=== PATIENT | male | born 1955 | race Caucasian/White ===

== ENCOUNTER 2016-12-21 17:43 | Inpatient (IN) | payer OTHER ==
[~2016-12-21] VITALS: Ht 185.4 cm; Wt 103.4 kg
[2016-12-21 17:56] VITALS: BP 160/112; PULSE 158; RESP 22; O2SAT 98
--- NOTE | 2016-12-21 17:57 | ED.REPORT ---
HPI-General Illness Date of Service Dec 21, 2016 ED Provider: Hieu Mathis MD 61 year old male who denies any past medical history who was referred to the ER from the cardiac clinic due to an abnormal echocardiogram. Pt was found to have an abnormal heart beat during a routine physical exam and was sent for an echocardiogram. Today he had his echo which showed EF 15-20% and was told to come immediately to the ER. Pt denies any symptoms. He denies CP, SOB, edema, weight gain, fatigue, numbness, tingling, weakness, slurred speech, palpitations , lightheadedness, dizziness and syncope. Nursing Notes Stated Complaint: HEART ISSUES Chief Complaint: Dysrhythmia/Cardiac Nursing Notes Reviewed: Yes Allergies: Coded Allergies: No Known Allergies (Unverified , 12/21/16) Scheduled Aspirin (Aspirin) 81 Mg Tablet 81 MG PO DAILY Metoprolol Tartrate (Metoprolol Tartrate) 25 Mg Tablet 25 MG PO BID General Time Seen by MD: 17:54 Chief Complaint Other (Abnormal echo) Hx Obtained From: Patient Arrived By: Walk-in Sudden in Onset?: No Severity: Current: No pain currently Pertinent Negative: Pt denies other symptoms Recent Healthcare: Recent doctor visit Past Medical History Past Medical History Pt denies any PMHx Sent to ER for Aflutter today 12/21/2016 Denies: Coronary artery disease, Diabetes mellitus, Hyperlipidemia, Hypertension , Stroke Past Surgical History None reported Smoking History Unknown if Ever Smoker Social History Alcohol Use: "Social" Drug Use: THC (occasionally) 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 Physical Exam Vital Signs Vital Signs Date Time Temp Pulse Resp B/P Pulse Ox O2 Delivery O2 Flow Rate FiO2 12/21/16 19:24 135 20 134/115 96 Room Air 12/21/16 17:56 36.9 158 22 160/112 98 Room Air Initial VS: Reviewed General/Constitutional: Well-developed, Well-nourished Head / Eyes: Atraumatic, Normocephalic, PERRL ENT: Mucous membranes moist, Conjunctiva normal, No scleral icterus Neck: Supple, Full range of motion Respiratory: Breath sounds normal, Clear to auscultation, No respiratory distress Abdomen / GI: Soft, Non-tender, No distention Extremities: Vascular intact, Neuro intact, No swelling (at calves), No tenderness (at calves) Skin: Warm, Dry, No cyanosis Neurologic: Alert, Oriented, Nonfocal Psychiatric: Mood/affect normal, Behavior normal, Normal thought content Heart Rate / Rhythm: Positive: Tachycardia (Irregular) Interpretation & Diagnostics Lab Results Interpretation Result Diagram: 12/21/16 1805 12/21/16 1805 Test 12/21/16 18:05 White Blood Count 12.0th/mm3 (3.8-10.1) Red Blood Count 6.22mil/mm3 (4.40-5.80) Hemoglobin 18.3g/dL (13.8-17.2) Hematocrit 53.6% (41.0-50.0) Mean Corpuscular Volume 86.2fL (81-100) Mean Corpuscular Hemoglobin 29.4pg (27.0-35.0) Mean Corpuscular Hemoglobin Concent 34.1% (32.0-37.0) Red Cell Distribution Width 14.2% (12.3-15.4) Platelet Count 261bil/L (150-400) Neutrophils (%) (Auto) 54.4% (40-74) Lymphocytes (%) (Auto) 32.2% (14-46) Monocytes (%) (Auto) 10.9% (4-12) Eosinophils (%) (Auto) 1.8% (0-5) Basophils (%) (Auto) 0.5% (0-3) Sodium Level 142mEq/L (134-144) Potassium Level 3.7mEq/L (3.5-5.2) Chloride Level 103mEq/L (97-108) Carbon Dioxide Level 21mmol/L (18-29) Blood Urea Nitrogen 17mg/dL (8-27) Creatinine 0.92mg/dL (0.76-1.27) Estimat Glomerular Filtration Rate 89mL/min (>59) Glucose Level 82mg/dL (60-99) Calcium Level 9.5mg/dL (8.5-10.1) Magnesium Level 1.9mg/dL (1.6-2.6) Total Bilirubin 0.9mg/dL (0.0-1.2) Aspartate Amino Transf (AST/SGOT) 45U/L (0-50) Alanine Aminotransferase (ALT/SGPT) 61U/L (0-44) Alkaline Phosphatase 83U/L (25-160) Troponin T < 0.010ug/L (0.0-0.011) Total Protein 7.6g/dL (6.4-8.4) Albumin 4.3g/dL (3.4-5.0) Hold Lim Top Tube Received (Received) General Lab Results Interp 1: Labs reviewed ECG Interpretation ECG Interpretation: Aflutter with variable conduction at a rate of [address] segment changes or T wave abnormalities. Time: 17:55 Interpreted by: ED physician X-Ray Chest Interpretation Chest Xray Interpretation: IMPRESSION: 1. Pulmonary edema and borderline cardiomegaly may reflect congestive heart failure. Dictated by: Nick Beltre M.D. on 12/21/2016 at 18:45 View: Portable, 1 view Interpretation / Wet Read by: Interpret - Radiologist Re-Eval/Medical Decision Med Decision/Clinical Course 61 year old male who denies any past medical history who was referred to the ER from the cardiac clinic due to an abnormal echocardiogram. Pt was found to have an abnormal heart beat during a routine physical exam and was sent for an echocardiogram. Today he had his echo which showed EF 15-20% and was told to come immediately to the ER. Pt denies any symptoms. He denies CP, SOB, edema, weight gain, fatigue, numbness, tingling, weakness, slurred speech, palpitations , lightheadedness, dizziness and syncope. Here the emergency department the patient is tachycardic with a heart rate in the 130s to 150s though is afebrile, he was medically stable and completely asymptomatic. He is unaware that his heart rate is rapid and irregular. ECG- Aflutter with variable conduction at a rate of [address] segment changes or T wave abnormalities. Chest x-ray 1. Pulmonary edema and borderline cardiomegaly may reflect congestive heart failure. CBC notable for hemoconcentration Hct 53 Leukocytosis 12 CMP unremarkable Troponin negative. IV access was obtained and the patient's rate was managed with multiple 5 mg aliquots of IV metoprolol. His pressure tolerated this well and his heart rate improved into the low 100s. It is surprising to me that the patient has severely reduced ejection fraction with associated pulmonary edema as he is completely asymptomatic and reports no symptoms suggestive of heart failure or pulmonary edema. I wonder if some of his reduced ejection fraction on echocardiogram today was reflective of his rapid rate. Patient was discussed with cardiology Dr. Gonzalez who requests that we start him on Eliquis, is now a patient started on Lovenox or heparin at this time. Plan for likely transesophageal echocardiogram and cardioversion if he does not have any thrombus present. At this time I see no evidence of acute coronary syndrome, pulmonary embolism or other immediately life-threatening process. Patient will require further evaluation for cause of his significantly reduced ejection fraction. Stressed with admitting hospitalist and transferred in stable condition. Time of Eval: 19:19 Re-Evaluation/Progress Note: Pt aware of plan for admission. All questions addressed. Condition unchanged, still tachycardic, BP decreased. Still asymptomatic. Consultation #1: Referral / Consult Name: Mia Gonzalez MD Consulted With: Cardiology Call Returned at: 18:24 Emergency Vehicle Operations Instructor: Will see patient Note: Discussed treatment options. Start pt on eloquis and metoprolol 25mg TID. Keep NPO. Plan for electrical cardioversion and echocardiogram. Consultation #2: Referral / Consult Name: Connor Ferreira MD Consulted With: Hospitalist Call Returned at: 19:19 Emergency Vehicle Operations Instructor: Will see patient, Agrees with eval, Agrees with plan, Accepts admit Counseled Regarding: Diagnosis, Lab results, Need for admission Discharge & Departure Primary Impression: Atrial flutter with rapid ventricular response Additional Impressions: Pulmonary edema Chronicity: acute Qualified Code: J81.0 - Acute pulmonary edema Reduced ejection fraction concurrent with and due to acute heart failure Disposition: ADMITTED TO HOSPITAL Discharge Condition All VS Reviewed: Yes Referrals: Massiel De Leon MD (PCP) Crit Care Except Billable Proc Time Spent: 105-134 minutes Services Performed: Patient management by me, Time spent at bedside, Reviewing test results, Reviewing imaging, Discussing patient care, Documentation in record, Time with fam/surrogate Scribe Attestation Portions of this note were transcribed by Marlys Luong. I, (Dr. Hieu Mathis ) personally performed the history, physical exam and medical decision-making; I reviewed and confirmed the accuracy of the information in the transcribed note. Signed by: Marlys Luong. Andrade, 12/21/2016, 1920 copies to: Massiel De Leon MD, Beck O MD Dec 21, 2016 17:57 Marlys Luong Dec 21, 2016 18:20
[2016-12-21] MEDS ORDERED: METO37.5 PO (18:04)
[2016-12-21] MEDS ORDERED: ASPI-973 PO (18:04)
[2016-12-21] MEDS ORDERED: METO25TA6 PO (18:05)
[2016-12-21 18:14] LABS: BASOPHILS % (AUTO) 0.5 % (0-3); EOSINOPHILS % (AUTO) 1.8 % (0-5); Mean Corpuscular Hemoglobin 29.4 pg (27.0-35.0)
[2016-12-21 18:22] LABS: MONOCYTES % (AUTO) 10.9 % (4-12); Mean Corpuscular Volume 86.2 fL (81-100); NEUTROPHILS % (AUTO) 54.4 % (40-74); Platelet Count 261 bil/L (150-400)
[2016-12-21] MEDS: MeTOProlol 1 mg/mL 5 mL Inj IVPUSH SCH ×3 (18:27→18:45)
[2016-12-21] MEDS ORDERED: Alum-Mag Hydrox-Simeth 30 mL Suspension PO PRN ×2 (18:30→19:25)
[2016-12-21] MEDS ORDERED: Ondansetron 2 mg/mL 2 mL Inj IVPUSH PRN ×2 (18:30→19:25)
[2016-12-21 18:39] LABS: Magnesium 1.9 mg/dL (1.6-2.6); TROPONIN T < 0.010 ug/L (0.0-0.011)
--- NOTE | 2016-12-21 18:48 | DRSVH ---
PROCEDURE: X-RAY CHEST ONE VIEW, PORTABLE ([id number]) INDICATIONS: shortness of breath TECHNIQUE: One view of the chest was acquired. COMPARISON: None. FINDINGS: Surgical changes and devices: None. Lungs and pleura: No pleural effusions or pneumothorax. The there are slightly low lung volumes. T here is prominence of the pulmonary vessels bilaterally compatible with pulmonary edema. Mediastinum: Mediastinal contours appear prominent likely due to low volumes and portable technique. Heart size is borderline enlarged. Bones and chest wall: No suspicious bony lesions. Overlying soft tissues appear unremarkable. IMPRESSION: 1. Pulmonary edema and borderline cardiomegaly may reflect congestive heart failure. Dictated by: Nick Beltre M.D. on 12/21/2016 at 18:45 Approved by: Nick Beltre M.D. on 12/21/2016 at 18:46
[2016-12-21 19:24] VITALS: BP 134/115; PULSE 135; RESP 20; O2SAT 96
[2016-12-21] MEDS ORDERED: Polyethylene Glycol (PEG) 17 Gm Powder PO PRN (19:25)
[2016-12-21] MEDS ORDERED: Lactated Ringer's 1,000 ML IV SCH (19:30)
--- NOTE | 2016-12-21 20:44 | NUR ---
Admit nurse note Admission assessment completed in the ER. Pt. denies complaints at present. STates he was dx with michael martínez in the last several weeks and after an US today "they called me at work and told me to come to the ER without even going home for a shower." Pt. has denies any previous health hx aside from childhood bone fractures. He started taking metoprolol and aspirin only several weeks ago and had to decrease his dose of metoprolol due to side effects. NKA verified. Pt. states he is "not a great reader" and would prefer his education verbally. Report given to Damon Melendez.
[2016-12-21 21:05] VITALS: BP 143/92; PULSE 126; PULSE 75; RESP 17; O2SAT 98
--- NOTE | 2016-12-21 21:23 | PCM.HPMED ---
Subjective Date of Service Dec 21, 2016 Primary Provider: Admitting Physician: Connor Ferreira MD Primary Care Physician: Massiel De Leon MD Attending Physician: Connor Ferreira MD Admit Status: From the Emergency Department Chief Complaint: HEART ISSUES History of Present Illness: 61 y/o M who denies any past medical history who was referred to the ED today after he had an abnormal Echo in the outpatient setting. 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 He reports that at his recent physical he was started on Metoprolol tartrate 25mg bid for a fast heart rate. At followup the Metoprolol was increased to 37.5mg bid and he was sent for an Echo. After the Echo showed an EF of 15-20% he was told to go to the ED. He states that he is somewhat surprised by all of this as he is without symptoms. He denies chest pain, palpitations, dyspnea, orthopnea, edema , fatigue, dizziness or headaches. He notes an active lifestyle and states that he watches what he eats, does not drink alcohol and only occasionally smokes marijuana. In the ED: Vitals temp 36.9C, BP 160/112, HR 158, RR 22, 98% on room air. Labs: wbc 12.0, H/H 18.3, 53.6, plts 261, sodium 142, potassium 3.7, chloride 103, bicarb 21, BUN 17, creatinine 0.92, serum glucose 82, calcium 9.5, magnesium 1.9 , total bili 0.9, AST 45, ALT 61, alk phos 93, troponin negative x1. ECG showing aflutter with variable conduction at rate of 128, no ST segment changes or T wave abnormalities and CXR demonstrating pulmonary edema and borderline cardiomegaly suggestive for CHF. He was started on IV metoprolol and cardiology consulted who will see tomorrow. Review of Systems: A comprehensive review of systems was conducted with the patient and found to be negative except as above in the History of Present Illness. Allergies Coded Allergies: No Known Allergies (Unverified , 12/21/16) Home Medications Aspirin 81mg PO Daily Metoprolol tartrate 25mg PO BID PMH Denies hx of CAD, DM, HTN, HLD and reports diagnosis of pre-diabetes. 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 Four adult children Exam Vital Signs Vital Sign - Last Date Time Temp Pulse Resp B/P Pulse Ox O2 Delivery O2 Flow Rate FiO2 12/21/16 19:24 135 20 134/115 96 Room Air 12/21/16 17:56 36.9 Exam Gen: Well-appearing, age-appropriate male in no acute distress, appropriately interactive HEENT: Normocephalic, atraumatic, PERRLA, no scleral icterus. Oropharynx normal , mucosa moist. Neck: Supple, non-tender. No JVD, bruits, lymphadenopathy or thyromegaly. Cardiac: Irregular rhythm, tachycardic, no murmurs, rubs or gallops appreciated. Lungs: Clear to auscultation bilaterally with no crackles, wheezes, or rhonchi. Abd: Soft, nontender, nondistended. No ogranomegaly or masses. Bowel tones normoactive. Ext: Distal pulses intact/equal bilaterally. No clubbing, cyanosis, or edema. Skin: Normal temperature, turgor, and texture; no rashes or ulcerations noted. Neuro: CN II-XII grossly intact. No focal motor/sensory deficit. Alert and oriented x3. Lab and Diagnostics Labs Laboratory Tests Test 12/21/16 18:05 White Blood Count 12.0th/mm3 (3.8-10.1) Red Blood Count 6.22mil/mm3 (4.40-5.80) Hemoglobin 18.3g/dL (13.8-17.2) Hematocrit 53.6% (41.0-50.0) Mean Corpuscular Volume 86.2fL (81-100) Mean Corpuscular Hemoglobin 29.4pg (27.0-35.0) Mean Corpuscular Hemoglobin Concent 34.1% (32.0-37.0) Red Cell Distribution Width 14.2% (12.3-15.4) Platelet Count 261bil/L (150-400) Neutrophils (%) (Auto) 54.4% (40-74) Lymphocytes (%) (Auto) 32.2% (14-46) Monocytes (%) (Auto) 10.9% (4-12) Eosinophils (%) (Auto) 1.8% (0-5) Basophils (%) (Auto) 0.5% (0-3) Sodium Level 142mEq/L (134-144) Potassium Level 3.7mEq/L (3.5-5.2) Chloride Level 103mEq/L (97-108) Carbon Dioxide Level 21mmol/L (18-29) Blood Urea Nitrogen 17mg/dL (8-27) Creatinine 0.92mg/dL (0.76-1.27) Estimat Glomerular Filtration Rate 89mL/min (>59) Glucose Level 82mg/dL (60-99) Calcium Level 9.5mg/dL (8.5-10.1) Magnesium Level 1.9mg/dL (1.6-2.6) Total Bilirubin 0.9mg/dL (0.0-1.2) Aspartate Amino Transf (AST/SGOT) 45U/L (0-50) Alanine Aminotransferase (ALT/SGPT) 61U/L (0-44) Alkaline Phosphatase 83U/L (25-160) Troponin T < 0.010ug/L (0.0-0.011) Total Protein 7.6g/dL (6.4-8.4) Albumin 4.3g/dL (3.4-5.0) Hold Lim Top Tube Received (Received) Result Diagram: 12/21/16180412/21/161804 X-Rays, CTs and MRIs X-RAY CHEST ONE VIEW, PORTABLE (Dictated by: Nick Beltre M.D. on 12/21/2016 at 18:4) FINDINGS: -Surgical changes and devices: None. -Lungs and pleura: No pleural effusions or pneumothorax. The there are slightly low lung volumes. There is prominence of the pulmonary vessels bilaterally compatible with pulmonary edema. -Mediastinum: Mediastinal contours appear prominent likely due to low volumes and portable technique. Heart size is borderline enlarged. -Bones and chest wall: No suspicious bony lesions. Overlying soft tissues appear unremarkable. IMPRESSION: Pulmonary edema and borderline cardiomegaly may reflect congestive heart failure. Approved by: Nick Beltre M.D. on 12/21/2016 at 18:46 Assessment & Plan 61 y/o M who denies any PMHx who presented to the ED after he had an abnormal Echo as an outpatient. Admitted for further evaluation and management of new onset Afib/flutter w/RVR and CHF. 1. Afib/ flutter w/RVR, new onset, present on admission. Active. -Pt asymptomatic, denies prior hx. Reportedly started on metoprolol tartrate recently for irregular heart rate. -Echo demonstrating severely dilated atria -In the ED: troponin negx1, s/p 5mg IVpush of metoprolol tartrate x3. HR 130s- 150s. -Rate control: metoprolol tartrate 50mg po bid -Will avoid diltiazem due to EF of 15-20% on echo -Start apixaban 5mg po bid, rec'd dose in the ED. -Cardiology consulted, will follow. -Placed on telemetry -Repeat CBC, CMP in morning 2. CHF, likely acute secondary to #1, present on admission. Active. -Echo (12/21/16)- severe global hypokinesis of LV w/EF 15-20% and pulmonary edema/ cardiomegaly on CXR. -Repeat echo ordered, Cardiology aware -TSH, lipid panel ordered, pending. 3. Hx of pre-diabetes, present on admission. Presumed stable. -HbA1c pending CODE STATUS: FULL CODE FEN: Heart Healthy Diet, NPO after midnight. GI Prophylaxis: not indicated DVT Prophylaxis: Sub-q lovenox, 40mg daily PRN: Acetaminophen-fever/headache/mild/moderate pain Antiemetics, as needed Bowel regimen, as needed. Disposition: Patient admitted under inpatient status with expected length of stay > 2 midnights for severity of present symptoms, complexities of treatment plan and risk for adverse event. Pain Evaluation: Adequate Pain Control VTE Prophylaxis Indicated: Meets Criteria for Anticoag Therapy VTE Prophylaxis: Other Resuscitation Status: CPR: Attempt Resuscitation Attending Statement The patient was seen and examined together with Dr. Burnett on 12/21/2016and I agree with the history, exam and plan as outlined in the note above. Katja Sierra DO Dec 21, 2016 19:44 Connor Ferreira MD Dec 22, 2016 04:19
--- NOTE | 2016-12-21 23:25 | NUR ---
Arrived [place] [facility] @ 21:00. Still asymptomatic with pain 0/10, tele afib/flutter @ 130 bpm, blood pressure 143/92 and 98% O2 sat on RA. Oriented to room and POC on whiteboard. Does not eat Lactose.
[2016-12-22] VITALS (11 sets, daily range): BP systolic 113–140; BP diastolic 84–110; PULSE 64–140; RESP 16–20; O2SAT 94–99
[2016-12-22 06:33] LABS: BASOPHILS % (AUTO) 0.4 % (0-3); EOSINOPHILS % (AUTO) 1.5 % (0-5); Mean Corpuscular Hemoglobin 29.8 pg (27.0-35.0); Mean Corpuscular Volume 87.2 fL (81-100); NEUTROPHILS % (AUTO) 64.2 % (40-74); Platelet Count 216 bil/L (150-400)
[2016-12-22 08:46] LABS: Magnesium 2.2 mg/dL (1.6-2.6)
--- NOTE | 2016-12-22 11:37 | NUR ---
Social Work: Screening Data: Pt is a 61 y/o male admitted for A flutter with RVR. Pt's PCP is Dr De Leon, pt's insurance is [employer] with [employer]. EMR reviewed, readmit score not listed. No d/c planning needs anticipated at this time. SOURCING COORDINATOR will continue to follow if needs arise. Assessment: Pt who is independent at baseline. Plan: Pt will d/c home via POV when medically stable. No d/c planning needs anticipated at this time. SOURCING COORDINATOR will continue to follow if needs arise. [place]
--- NOTE | 2016-12-22 11:47 | PCM.CHPCAR ---
Consult Subjective Date of service Dec 22, 2016 Date of admit Dec 21, 2016 at 20:03 Provider Requesting Consult Primary Care Physician Primary Care Physician: Massiel De Leon MD Chief Complaint AFib with RVR and systolic heart failure History of Present Illness 61-year-old man who has been previously healthy admitted with new onset atrial fibrillation with RVR and newly diagnosed cardiomyopathy. Patient states that he has been in good health all his life and moved from [place] about 2 years ago. 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 He established care with primary care, Dr. De Leon, who ordered echocardiogram for presumed atrial fibrillation. Echo was done yesterday that showed atrial fibrillation with RVR and severely reduced systolic function with EF 15-20%. Patient was called in to be admitted to the hospital for management of his atrial fibrillation and heart failure. Patient states that he is doing well and has no symptoms or complaints. He denies chest pain, dyspnea, palpitations, heart racing sensations, lightheadedness, syncope, nausea, or vomiting. He is able to run upstairs without any difficulty. Review of Systems Review of Systems Per history of present illness and otherwise unremarkable PMH Past Medical History NONE Scheduled Aspirin (Aspirin) 81 Mg Tablet 81 MG PO DAILY (Reported) Metoprolol Tartrate (Metoprolol Tartrate) 25 Mg Tablet 25 MG PO BID (Reported) Discontinued Medications Metoprolol Tartrate (Metoprolol Tartrate) 37.5 Mg Tablet 37.5 MG PO BID ( Reported) Current Inpatient Medications Current Medications Metoprolol Tartrate 5 mg Q5MIN IVPUSH Last administered on 12/21/16t 18:45; Admin Dose 5 MG; Start 12/21/16 at 18:20 Al Hydrox/Mg Hydrox/Simethicone 30 ml Q6 PRN PO; Start 12/21/16 at 18:30; Stop 12/21/16 at 19:32; Status DC Ondansetron HCl Dose range: 4 mg to 8 mg Q4H PRN IVPUSH; Start 12/21/16 at 18:30 ; Stop 12/21/16 at 19:32; Status DC Acetaminophen 975 mg Q6H PRN PO; Start 12/21/16 at 18:30 Metoprolol Tartrate 25 mg TID PO; Start 12/21/16 at 20:30; Stop 12/21/16 at 20:30 ; Status DC Al Hydrox/Mg Hydrox/Simethicone 30 ml Q6H PRN PO; Start 12/21/16 at 19:25 Ondansetron HCl 4 to 8 mg Q4H PRN IVPUSH; Start 12/21/16 at 19:25 Senna 17.2 mg BID PRN PO; Start 12/21/16 at 19:25 Polyethylene Glycol 17 gm DAILY PRN PO; Start 12/21/16 at 19:25 Apixaban 5 mg 5 mg BID PO Last administered on 12/22/16 08:52; Admin Dose 5 MG; Start 12/22/16 at 08:30 Lactated Ringer's 1,000 ml @ 125 mls/hr Q8H IV Last administered on 12/21/16 22 :16; Admin Dose 125 MLS/HR; Start 12/21/16 at 19:30; Stop 12/21/16 at 23:36; Status DC Metoprolol Tartrate 50 mg BID PO Last administered on 12/22/16 08:52; Admin Dose 50 MG; Start 12/21/16 at 20:30 Allergies: Coded Allergies: No Known Allergies (Unverified , 12/21/16) Family History Family History Dad received stents to his heart in his 70s Social History 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 Hx Alcohol Use: YesAlcoholic Drinks Per Day: occasional beer Hx Substance Use: Yes (THC, occasional ) Smoking Status: Former Smoker (Occasional social smoker, quit in 1999) Living Arrangement: Alone Exam Vital Signs Vital Sign - Last Date Time Temp Pulse Resp B/P Pulse Ox O2 Delivery O2 Flow Rate FiO2 12/22/16 08:57 36.7 100 20 123/93 96 Room Air Intake and Output 12/21/16 12/21/16 12/22/16 Cumulative From/Thru 15:00 23:00 07:00 12/21/16 17:56 - 12/22/16 06:29 Intake Total 1000 ml 1000 ml Balance 1000 ml 1000 ml IV Total 1000 ml 1000 ml General appearance: No apparent distress, well-nourished, pleasant, cooperative HEET: Normocephalic atraumatic, no scleral icterus, tongue midline, mucous membranes moist Neck: supple, no carotid bruits Cardiovascular: RRR, normal S1 and normal S2, no m/r/g, PMI nondisplaced, JVP 10cm H20, no peripheral edema b/l Respiratory: Good aeration, CTAB Abdomen: Soft, nontender, nondistended, + bowel sounds Neuro: Alert, no facial droop, tongue midline Psych: appropriate affect Skin: no rashes on face, neck, and lower extremities Lab and Diagnostics Result Diagram: 12/22/16 0550 12/22/16 0550 X-Rays, CTs and MRIs Echo 12/21/2016: The left ventricle is normal in size. The ejection fraction is estimated to be 15-20%. There is severe global hypokinesis of the left ventricle. The right ventricle is mildly dilated. Right ventricular systolic function is moderately reduced. Both atria are severely dilated. There is moderate mitral regurgitation. There is moderate tricuspid regurgitation. The right ventricular systolic pressure is estimated at 40 mmHg assuming a right atrial pressure of 15 mm Hg. The ascending aorta is mildly enlarged. The patient was in atrial fibrillation with heart rates between 118-157 bpm during the exam. Assessment & Plan Assessment 61-year-old man who has been previously healthy admitted with new onset atrial fibrillation with RVR and newly diagnosed cardiomyopathy: # Newly diagnosed cardiomyopathy: Suspect etiology is tachycardia mediated. His TSH is normal. No history of prior cardiac infarction based on history or on ECG. On telemetry, his ventricular rate remains in the 110s-140s range. Patient is asymptomatic from his cardiomyopathy and from his atrial fibrillation. He is NYHA class II, ACC stage B. I spent significant time educating the patient about his condition and answered his questions. I recommended rhythm control with cardioversion. After much discussion with him, patient wants to proceed with cardioversion tests are proceeded by ALBINA. Recommendations as below: - Switch from metoprolol tartrate 50mg bid to metoprolol XL 100mg bid for better rate control. - If BP > 120/80 after DCCV, he can be considered for low dose lisinopril/ losartan - ALBINA with DCCV for rhythm control of AF # AF with RVR: poor rate control. - Metoprolol as above - Continue apixaban 5mg bid - DCCV as above - Stop marijuana use # HLD: mildly elevated lipids. Will manage as outpatient # Marijuana use: Educated patient to stop marijuana use. Pain Evaluation: Adequate Pain Control VTE Prophylaxis Indicated: Meets Criteria for Anticoag Therapy VTE Prophylaxis: Other Resuscitation Status: CPR: Attempt Resuscitation Sam March MD Dec 22, 2016 11:47
[2016-12-22] MEDS ORDERED: Atropine 1 mg/10 mL (Code) Syringe ONE (11:56)
[2016-12-22] MEDS: MeTOProlol XL 50 mg ER24 Tablet PO SCH ×2 (12:13→21:19)
[2016-12-22] MEDS ORDERED: fentaNYL-PF 50 mCg/mL 2 mL Inj ONE (14:43)
[2016-12-22] MEDS ORDERED: 0.9% Sodium Chloride 250 ML ONE (14:44)
[2016-12-22] MEDS ORDERED: Methohexital 10 mg/mL 50 mL Inj ONE (14:45)
--- NOTE | 2016-12-22 14:45 | NUR ---
A-fib Per telesales agent, Patient was in A-fib in the 140's this morning. MD was notified. Patient was administered PO Metoprolol and patient continued A-fib in 120's-130's. MD was made aware. Patient has ALBINA ordered for today
--- NOTE | 2016-12-22 15:23 | NUR ---
To [facility] Patient report given to [facility] nurse Isis. Patient transferred by wheelchair to [facility] room 1 by ROTARY DUMP OPERATOR at 1515.
[2016-12-22] MEDS ORDERED: Amiodarone 150 mg/100 mL D5W Premix IV ONE (16:22)
--- NOTE | 2016-12-22 16:52 | PCM.PROC ---
Procedure Note Date of Service: Dec 22, 2016 Pre Procedure Diagnosis: Atrial fibrillation with rapid ventricular response, new cardiomyopathy Post Procedure Diagnosis: Atrial fibrillation with rapid ventricular response, new cardiomyopathy Procedure: DC Cardioversion. Indication for Procedure: Poor rate controlled atrial fibrillation, new cardiomyopathy Findings: Successful transient conversion from atrial fibrillation to sinus rhythm and spontaneous conversion back to atrial fibrillation. Procedural Analgesia: Brevital 40mg IV X1 Procedure Details: After ALBINA showed no left atrial appendage thrombus, patient received brevital 40mg IV X1. With 200J of synchronized DC CV, patient's rhythm successfully converted from atrial fibrillation to sinus rhythm briefly and then spontaneously conversion back to atrial fibrillation. Patient then received another 200J of synchronized DC CV and patient's rhythm again converted from atrial fibrillation to sinus rhythm transiently and converted then back to atrial fibrillation spontaneously. Post Procedure Plan: 1) Continue rate control 2) Start IV amiodarone for rate and rhythm control and consider repeat DC CV in future 3) Continue therapeutic anticoagulation Sam March MD Dec 22, 2016 16:52
--- NOTE | 2016-12-22 17:41 | NUR ---
[facility] ALBINA/CARDIOVERSION PT WAS BROUGHT TO [facility] AT 1515 FOR PROCEDURES. SEE PAPER FLOW SHEETS FOR DETAILS. CARDIOVERSION WAS UNSUCCESSFUL AND PT WAS GIVEN AMIODARONE 150MG IV BOLUS OVER 30MINUTES PER VERBAL ORDERS DR IRVING. POST SEDATION PT REMAINED STABLE. CURRENTLY TAKING PO FLUIDS AND ABLE TO STAND AT BEDSIDE. PT AND HIS NURSING CARE WERE TRANSFERRED BACK TO ROOM 3021 AT 1735. REPORT WAS GIVEN TO FREDRICK Leavitt RN. TELE CONFIRMED WITH TECHNOLOGY SPECIALIST.
--- NOTE | 2016-12-22 17:56 | PCM.PNMED ---
Subjective Date of Service Dec 22, 2016 Exam Vital Signs Vital Sign - Last Date Time Temp Pulse Resp B/P Pulse Ox O2 Delivery O2 Flow Rate FiO2 12/22/16 17:15 111 17 113/94 94 Room Air 12/22/16 12:57 36.4 Intake and Output 12/21/16 12/21/16 12/22/16 Cumulative From/Thru 15:00 23:00 07:00 12/21/16 17:56 - 12/22/16 06:29 Intake Total 1000 ml 1000 ml Balance 1000 ml 1000 ml IV Total 1000 ml 1000 ml Exam Eyes; juhi eom intact, ENTM; well hydrated, no lesions CV; S1S2 present, no murmur or gallop, irregular at 100/min Resp; clear Abdo soft and benign Skin; no rash or lesion noted Neuro; 2-12 intact no motor or sensory defects Lab and Diagnostics Result Diagram: 12/22/16 0550 12/22/16 0550 X-Rays, CTs and MRIs X-RAY CHEST ONE VIEW, PORTABLE (Dictated by: Nick Beltre M.D. on 12/21/2016 at 18:4) FINDINGS: -Surgical changes and devices: None. -Lungs and pleura: No pleural effusions or pneumothorax. The there are slightly low lung volumes. There is prominence of the pulmonary vessels bilaterally compatible with pulmonary edema. -Mediastinum: Mediastinal contours appear prominent likely due to low volumes and portable technique. Heart size is borderline enlarged. -Bones and chest wall: No suspicious bony lesions. Overlying soft tissues appear unremarkable. IMPRESSION: Pulmonary edema and borderline cardiomegaly may reflect congestive heart failure. Approved by: Nick Beltre M.D. on 12/21/2016 at 18:46 Assessment & Plan 61 y/o M who denies any PMHx who presented to the ED after he had an abnormal Echo as an outpatient. Admitted for further evaluation and management of new onset Afib/flutter w/RVR and CHF. 1. Afib/ flutter w/RVR, new onset, present on admission. Active. -Pt asymptomatic, denies prior hx. Reportedly started on metoprolol tartrate recently for irregular heart rate. -Echo demonstrating severely dilated atria -tsh normal -2 attempted cardioversion following ALBINA, did not stay in sinus -oral amio started, reevaluate in AM 2. CHF, likely acute secondary to #1, present on admission. Active. -Echo (12/21/16)- severe global hypokinesis of LV w/EF 15-20% and pulmonary edema/ cardiomegaly on CXR. -Repeat echo ordered, Cardiology aware -TSH, lipid panel ordered, pending. 3. Hx of pre-diabetes, present on admission. Presumed stable. -HbA1c pending CODE STATUS: FULL CODE FEN: Heart Healthy Diet, NPO after midnight. GI Prophylaxis: not indicated DVT Prophylaxis: Sub-q lovenox, 40mg daily PRN: Acetaminophen-fever/headache/mild/moderate pain Antiemetics, as needed Bowel regimen, as needed. Disposition: Patient admitted under inpatient status with expected length of stay > 2 midnights for severity of present symptoms, complexities of treatment plan and risk for adverse event. VTE Prophylaxis: Other Resuscitation Status: CPR: Attempt Resuscitation Jesus Schulz MD Dec 22, 2016 17:56 VTE Prophylaxis: Other Resuscitation Status: CPR: Attempt Resuscitation Jesus Schulz MD Dec 22, 2016 17:56
[2016-12-23 00:37] VITALS: BP 112/80; PULSE 83; RESP 18; O2SAT 98
[2016-12-23] MEDS ORDERED: MeTOProlol 1 mg/mL 5 mL Inj IVPUSH ONE (01:50)
[2016-12-23 04:39] VITALS: BP 121/92; PULSE 64; RESP 18; O2SAT 97
[2016-12-23 05:52] VITALS: PULSE 123
--- NOTE | 2016-12-23 06:23 | NUR ---
IV metoprolol Pts HR began slowly increasing after midnight. Pts HR between 120 and 140. Pt is asymptomatic. Md notified and ordered one time dose of IV metoprolol. Medication given with good relief of tachycardia.
[2016-12-23] MEDS: MeTOProlol XL 50 mg ER24 Tablet PO SCH (08:30)
[2016-12-23 10:08] VITALS: PULSE 126
[2016-12-23 10:38] VITALS: BP 127/96; PULSE 108; RESP 18; O2SAT 98
--- NOTE | 2016-12-23 11:00 | DRSVH ---
[facility] [address] [place] [address] Echocardiogram Report Name: CORNELL PRUETT LStudy Date : 12/22/2016 Height: 73 in Hospital Exam Location: [facility] Weight: 228 lb Gender: Male BSA: 2.3 m2 : 1955 Age: 61 yrs BP: 134/110 mmHg Reason For Study: PRE-CARDIOVERSION Ordering Physician: Performed By: Armand Dominguez Interpretation Summary No thrombus is detected in the left atrial appendage. Procedure: A 2D transesophageal echocardiogram with spectral and color flow Doppler was performed. Informed consent for Transesophageal Echocardiogram, and use of a contrast agent as needed, was obtained prior to the procedure. The patient was brought to the [facility] in a fasting state. An intravenous line was placed. A topical anesthetic agent was used for oropharangeal anesthesia. A bite block was inserted. IV concious sedation was administered using versed and fentanyl. Comparison is made with the echocardiogram of 12/21/16. The patient was in atrial fibrillation with rapid ventricular response during the exam with a heart rate exceeding 100 bpm. There were no complications. Left Ventricle: Left ventricular systolic function is severely reduced. Atria: No thrombus is detected in the left atrial appendage. There is no Doppler evidence for an atrial septal defect. Aortic Valve: The aortic valve is normal in structure and function. There is mild aortic regurgitation. Pulmonic Valve: The pulmonic valve is not well seen, but is grossly normal. Reading Physician:10:59 AM
--- NOTE | 2016-12-23 12:18 | PCM.PNCARD ---
Subjective Date of service Dec 23, 2016 Chief Complaint AFib with RVR and systolic heart failure History of Present Illness 61-year-old man who has been previously healthy admitted with new onset atrial fibrillation with RVR and newly diagnosed cardiomyopathy. Patient states that he has been in good health all his life and moved from [place] about 2 years ago. 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 He established care with primary care, Dr. De Leon, who ordered echocardiogram for presumed atrial fibrillation. Echo was done yesterday that showed atrial fibrillation with RVR and severely reduced systolic function with EF 15-20%. Patient was called in to be admitted to the hospital for management of his atrial fibrillation and heart failure. Patient states that he is doing well and has no symptoms or complaints. He denies chest pain, dyspnea, palpitations, heart racing sensations, lightheadedness, syncope, nausea, or vomiting. He is able to run upstairs without any difficulty. Subjective: No events overnight. Patient continues to feel good. He underwent ALBINA yesterday that showed no LA thrombus. Subsequent DC CV X2 yielded successful conversion of AF to sinus very briefly (for about 5 seconds). Due to limited success, he was started on IV amiodarone bolus and then transitioned to PO amiodarone. PROBLEM LIST: # HFrEF: probably from tachycardia mediated cardiomyopathy # Persistent atrial fibrillation: DC CV X2 on 12/22/2016 resulted on transient ( about 5seconds) success Exam Vital Signs Vital Sign - Last Date Time Temp Pulse Resp B/P Pulse Ox O2 Delivery O2 Flow Rate FiO2 12/23/16 10:38 36.7 108 18 127/96 98 Room Air Intake and Output 12/22/16 12/22/16 12/23/16 Cumulative From/Thru 15:00 23:00 07:00 12/21/16 17:56 - 12/23/16 05:34 Intake Total 200 ml 800 ml 250 ml 2250 ml Output Total 550 ml 550 ml Balance -350 ml 800 ml 250 ml 1700 ml Intake Oral 200 ml 600 ml 250 ml 1050 ml IV Total 200 ml 1200 ml Output Urine Total 550 ml 550 ml # Voids 1 3 2 6 # Bowel Movements 2 2 General appearance: No apparent distress, well-nourished, pleasant, cooperative HEET: Normocephalic atraumatic, no scleral icterus, tongue midline, mucous membranes moist Neck: supple, no carotid bruits Cardiovascular: irregularly irregular, tachy, normal S1 and normal S2, no m/r/g , PMI nondisplaced, JVP 8cm H20, no peripheral edema b/l Respiratory: Good aeration, CTAB Abdomen: Soft, nontender, nondistended, + bowel sounds Neuro: Alert, no facial droop, tongue midline Psych: appropriate affect Skin: no rashes on face, neck, and lower extremities Lab and Diagnostics Result Diagram: 12/22/16 0550 12/22/16 0550 X-Rays, CTs and MRIs Echo 12/21/2016: The left ventricle is normal in size. The ejection fraction is estimated to be 15-20%. There is severe global hypokinesis of the left ventricle. The right ventricle is mildly dilated. Right ventricular systolic function is moderately reduced. Both atria are severely dilated. There is moderate mitral regurgitation. There is moderate tricuspid regurgitation. The right ventricular systolic pressure is estimated at 40 mmHg assuming a right atrial pressure of 15 mm Hg. The ascending aorta is mildly enlarged. 12-lead ECG Telemetry in the past 24 hours shows atrial fibrillation with ventricular rates in the 110s-120s Assessment & Plan Assessment 61-year-old man who has been previously healthy admitted with new onset atrial fibrillation with RVR and newly diagnosed cardiomyopathy: # Newly diagnosed cardiomyopathy: Suspect etiology is tachycardia mediated. His TSH is normal. No history of prior cardiac infarction based on history or on ECG. Patient is asymptomatic and is NYHA class II, ACC stage B. Attempt at DC CV on 12/22/2016 was successful very transiently. I spent significant time educating the patient about his condition and answered his questions. Recommendations as below: - Increase metoprolol XL from 100mg bid to 150mg bid for better rate control. - Start lisinopril 5mg qhs # AF with RVR: poor rate control that has improved slightly with amiodarone that was started 12/22/2016. Very transient conversion to sinus rhythm with DC CV X2 on 12/22/2016. Plan - Metoprolol as above - Continue apixaban 5mg bid - Continue amiodarone 400mg bid - Stop marijuana use # HLD: mildly elevated lipids. Will manage as outpatient # Marijuana use: Educated patient to stop marijuana use. Patient is okay to be discharged from cardiology standpoint. Will see him as outpatient in 2 weeks. Problems: Pain Evaluation: Adequate Pain Control VTE Prophylaxis: Other Resuscitation Status: CPR: Attempt Resuscitation Sam March MD Dec 23, 2016 12:18
[2016-12-23 14:15] VITALS: BP 127/95; PULSE 104; RESP 16; O2SAT 100
--- NOTE | 2016-12-23 14:46 | PCM.DIMED ---
Discharge Instructions Date of Service Dec 23, 2016 Dates of Hospitalization Dec 21, 2016 at 20:03 Discharge Diagnosis Discharge Diagnosis 1. Afib/ flutter w/RVR, new onset, present on admission. stable. 2. CHF, likely acute secondary to #1, present on admission. stable. 3. Hx of pre-diabetes, present on admission. stable. -HbA1c 5.9 Diet Low fat, Low Sodium Activity Limited until seen by PCP, Other (nothing to strenuous) Patient Instructions Follow-up plan Dr Perdomo's office is to call you in the next few day to set up your cardiology appointment, if you do not hear from them By Sunday please call for appointment Jesus Schulz MD Dec 23, 2016 14:46
[2016-12-23] MEDS ORDERED: LISI-571 PO (14:50)
[2016-12-23] MEDS ORDERED: APIX5TAB PO (14:50)
[2016-12-23] MEDS ORDERED: METO-274 PO (14:50)
[2016-12-23] MEDS ORDERED: METO-272 PO (14:50)
[2016-12-23] MEDS ORDERED: AMIO400T4 PO (14:50)
--- NOTE | 2016-12-23 14:59 | PCM.DC.MED ---
Discharge Summary Date of Service Dec 23, 2016 Dates of Hospitalization Date of Hospital Admission Dec 21, 2016 at 20:03 Date of Discharge: Dec 23, 2016 Providers: Admitting Physician: Connor Ferreira MD Primary Care Physician: Massiel De Leon MD Attending Physician: Connor Ferreira MD Diagnosis at Time of Discharge Diagnosis at Time of Discharge 1. Afib/ flutter w/RVR, new onset, present on admission. stable. 2. CHF, likely acute secondary to #1, present on admission. stable. 3. Hx of pre-diabetes, present on admission. stable. -HbA1c 5.9 Consultations Consult Subjective Date of service Dec 22, 2016 Date of admit Dec 21, 2016 at 20:03 Provider Requesting Consult Primary Care Physician Primary Care Physician: Massiel De Leon MD Chief Complaint AFib with RVR and systolic heart failure History of Present Illness 61-year-old man who has been previously healthy admitted with new onset atrial fibrillation with RVR and newly diagnosed cardiomyopathy. Patient states that he has been in good health all his life and moved from [place] about 2 years ago. 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 He established care with primary care, Dr. De Leon, who ordered echocardiogram for presumed atrial fibrillation. Echo was done yesterday that showed atrial fibrillation with RVR and severely reduced systolic function with EF 15-20%. Patient was called in to be admitted to the hospital for management of his atrial fibrillation and heart failure. Patient states that he is doing well and has no symptoms or complaints. He denies chest pain, dyspnea, palpitations, heart racing sensations, lightheadedness, syncope, nausea, or vomiting. He is able to run upstairs without any difficulty. Review of Systems Review of Systems Per history of present illness and otherwise unremarkable PMH Past Medical History NONE Scheduled Aspirin (Aspirin) 81 Mg Tablet 81 MG PO DAILY (Reported) Metoprolol Tartrate (Metoprolol Tartrate) 25 Mg Tablet 25 MG PO BID (Reported) Discontinued Medications Metoprolol Tartrate (Metoprolol Tartrate) 37.5 Mg Tablet 37.5 MG PO BID ( Reported) Current Inpatient Medications Current Medications Metoprolol Tartrate 5 mg Q5MIN IVPUSH Last administered on 12/21/16t 18:45; Admin Dose 5 MG; Start 12/21/16 at 18:20 Al Hydrox/Mg Hydrox/Simethicone 30 ml Q6 PRN PO; Start 12/21/16 at 18:30; Stop 12/21/16 at 19:32; Status DC Ondansetron HCl Dose range: 4 mg to 8 mg Q4H PRN IVPUSH; Start 12/21/16 at 18:30 ; Stop 12/21/16 at 19:32; Status DC Acetaminophen 975 mg Q6H PRN PO; Start 12/21/16 at 18:30 Metoprolol Tartrate 25 mg TID PO; Start 12/21/16 at 20:30; Stop 12/21/16 at 20:30 ; Status DC Al Hydrox/Mg Hydrox/Simethicone 30 ml Q6H PRN PO; Start 12/21/16 at 19:25 Ondansetron HCl 4 to 8 mg Q4H PRN IVPUSH; Start 12/21/16 at 19:25 Senna 17.2 mg BID PRN PO; Start 12/21/16 at 19:25 Polyethylene Glycol 17 gm DAILY PRN PO; Start 12/21/16 at 19:25 Apixaban 5 mg 5 mg BID PO Last administered on 12/22/16 08:52; Admin Dose 5 MG; Start 12/22/16 at 08:30 Lactated Ringer's 1,000 ml @ 125 mls/hr Q8H IV Last administered on 12/21/16 22 :16; Admin Dose 125 MLS/HR; Start 12/21/16 at 19:30; Stop 12/21/16 at 23:36; Status DC Metoprolol Tartrate 50 mg BID PO Last administered on 12/22/16 08:52; Admin Dose 50 MG; Start 12/21/16 at 20:30 Allergies: Coded Allergies: No Known Allergies (Unverified , 12/21/16) Family History Family History Dad received stents to his heart in his 70s Social History 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 Hx Alcohol Use: YesAlcoholic Drinks Per Day: occasional beer Hx Substance Use: Yes (THC, occasional ) Smoking Status: Former Smoker (Occasional social smoker, quit in 1999) Living Arrangement: Alone Exam Vital Signs Vital Sign - Last Date Time Temp Pulse Resp B/P Pulse Ox O2 Delivery O2 Flow Rate FiO2 12/22/16 08:57 36.7 100 20 123/93 96 Room Air Intake and Output 12/21/16 12/21/16 12/22/16 Cumulative From/Thru 15:00 23:00 07:00 12/21/16 17:56 - 12/22/16 06:29 Intake Total 1000 ml 1000 ml Balance 1000 ml 1000 ml IV Total 1000 ml 1000 ml General appearance: No apparent distress, well-nourished, pleasant, cooperative HEET: Normocephalic atraumatic, no scleral icterus, tongue midline, mucous membranes moist Neck: supple, no carotid bruits Cardiovascular: RRR, normal S1 and normal S2, no m/r/g, PMI nondisplaced, JVP 10cm H20, no peripheral edema b/l Respiratory: Good aeration, CTAB Abdomen: Soft, nontender, nondistended, + bowel sounds Neuro: Alert, no facial droop, tongue midline Psych: appropriate affect Skin: no rashes on face, neck, and lower extremities Lab and Diagnostics Result Diagram: 12/22/16 0550 12/22/16 0550 X-Rays, CTs and MRIs Echo 12/21/2016: The left ventricle is normal in size. The ejection fraction is estimated to be 15-20%. There is severe global hypokinesis of the left ventricle. The right ventricle is mildly dilated. Right ventricular systolic function is moderately reduced. Both atria are severely dilated. There is moderate mitral regurgitation. There is moderate tricuspid regurgitation. The right ventricular systolic pressure is estimated at 40 mmHg assuming a right atrial pressure of 15 mm Hg. The ascending aorta is mildly enlarged. The patient was in atrial fibrillation with heart rates between 118-157 bpm during the exam. Assessment & Plan Assessment 61-year-old man who has been previously healthy admitted with new onset atrial fibrillation with RVR and newly diagnosed cardiomyopathy: # Newly diagnosed cardiomyopathy: Suspect etiology is tachycardia mediated. His TSH is normal. No history of prior cardiac infarction based on history or on ECG. On telemetry, his ventricular rate remains in the 110s-140s range. Patient is asymptomatic from his cardiomyopathy and from his atrial fibrillation. He is NYHA class II, ACC stage B. I spent significant time educating the patient about his condition and answered his questions. I recommended rhythm control with cardioversion. After much discussion with him, patient wants to proceed with cardioversion tests are proceeded by ALBINA. Recommendations as below: - Switch from metoprolol tartrate 50mg bid to metoprolol XL 100mg bid for better rate control. - If BP > 120/80 after DCCV, he can be considered for low dose lisinopril/ losartan - ALBINA with DCCV for rhythm control of AF # AF with RVR: poor rate control. - Metoprolol as above - Continue apixaban 5mg bid - DCCV as above - Stop marijuana use # HLD: mildly elevated lipids. Will manage as outpatient # Marijuana use: Educated patient to stop marijuana use. Pain Evaluation: Adequate Pain Control VTE Prophylaxis Indicated: Meets Criteria for Anticoag Therapy VTE Prophylaxis: Other Resuscitation Status: CPR: Attempt Resuscitation Sam March MD Dec 22, 2016 11:47 Date of service Dec 23, 2016 Cardiology follow up Assessment & Plan Assessment 61-year-old man who has been previously healthy admitted with new onset atrial fibrillation with RVR and newly diagnosed cardiomyopathy: # Newly diagnosed cardiomyopathy: Suspect etiology is tachycardia mediated. His TSH is normal. No history of prior cardiac infarction based on history or on ECG. Patient is asymptomatic and is NYHA class II, ACC stage B. Attempt at DC CV on 12/22/2016 was successful very transiently. I spent significant time educating the patient about his condition and answered his questions. Recommendations as below: - Increase metoprolol XL from 100mg bid to 150mg bid for better rate control. - Start lisinopril 5mg qhs # AF with RVR: poor rate control that has improved slightly with amiodarone that was started 12/22/2016. Very transient conversion to sinus rhythm with DC CV X2 on 12/22/2016. Plan - Metoprolol as above - Continue apixaban 5mg bid - Continue amiodarone 400mg bid - Stop marijuana use # HLD: mildly elevated lipids. Will manage as outpatient # Marijuana use: Educated patient to stop marijuana use. Patient is okay to be discharged from cardiology standpoint. Will see him as outpatient in 2 weeks. Problems: Pain Evaluation: Adequate Pain Control VTE Prophylaxis: Other Resuscitation Status: CPR: Attempt Resuscitation Sam March MD Procedures XRay, CTs & MRIs X-RAY CHEST ONE VIEW, PORTABLE (Dictated by: Nick Beltre M.D. on 12/21/2016 at 18:4) FINDINGS: -Surgical changes and devices: None. -Lungs and pleura: No pleural effusions or pneumothorax. The there are slightly low lung volumes. There is prominence of the pulmonary vessels bilaterally compatible with pulmonary edema. -Mediastinum: Mediastinal contours appear prominent likely due to low volumes and portable technique. Heart size is borderline enlarged. -Bones and chest wall: No suspicious bony lesions. Overlying soft tissues appear unremarkable. IMPRESSION: Pulmonary edema and borderline cardiomegaly may reflect congestive heart failure. Approved by: Nick Beltre M.D. on 12/21/2016 at 18:46 Cardiac Echo Impression Echocardiogram Report Name: CORNELL PRUETT LStudy Date : 12/22/2016 Height: 73 in Hospital Exam Location: [facility] Weight: 228 lb Gender: Male BSA: 2.3 m2 : 1955 Age: 61 yrs BP: 134/110 mmHg Reason For Study: PRE-CARDIOVERSION Ordering Physician: Performed By: Armand Dominguez Interpretation Summary No thrombus is detected in the left atrial appendage. Procedure: A 2D transesophageal echocardiogram with spectral and color flow Doppler was performed. Informed consent for Transesophageal Echocardiogram, and use of a contrast agent as needed, was obtained prior to the procedure. The patient was brought to the [facility] in a fasting state. An intravenous line was placed. A topical anesthetic agent was used for oropharangeal anesthesia. A bite block was inserted. IV concious sedation was administered using versed and fentanyl. Comparison is made with the echocardiogram of 12/21/16. The patient was in atrial fibrillation with rapid ventricular response during the exam with a heart rate exceeding 100 bpm. There were no complications. Left Ventricle: Left ventricular systolic function is severely reduced. Atria: No thrombus is detected in the left atrial appendage. There is no Doppler evidence for an atrial septal defect. Aortic Valve: The aortic valve is normal in structure and function. There is mild aortic regurgitation. Pulmonic Valve: The pulmonic valve is not well seen, but is grossly normal. Reading Physician:10:59 AM Brief History 61-year-old man who has been previously healthy admitted with new onset atrial fibrillation with RVR and newly diagnosed cardiomyopathy. Patient states that he has been in good health all his life and moved from [place] about 2 years ago. 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 He established care with primary care, Dr. De Leon, who ordered echocardiogram for presumed atrial fibrillation. Echo was done yesterday that showed atrial fibrillation with RVR and severely reduced systolic function with EF 15-20%. Patient was called in to be admitted to the hospital for management of his atrial fibrillation and heart failure. Patient states that he is doing well and has no symptoms or complaints. He denies chest pain, dyspnea, palpitations, heart racing sensations, lightheadedness, syncope, nausea, or vomiting. He is able to run upstairs without any difficulty. Hospital Course 61 y/o M who denies any PMHx who presented to the ED after he had an abnormal Echo as an outpatient. Admitted for further evaluation and management of new onset Afib/flutter w/RVR and CHF. 1. Afib/ flutter w/RVR, new onset, present on admission. Active. -Pt asymptomatic, denies prior hx. Reportedly started on metoprolol tartrate recently for irregular heart rate. -Echo demonstrating severely dilated atria -tsh normal -2 attempted cardioversion following ALBINA, did not stay in sinus on 12/22/16 -plan is to discharge patient on metop, amio, eliquis, and return to see Dr. March next week for repeat cardioversion attempt as outpatient 2. CHF, likely acute secondary to #1, present on admission. Active. -Echo (12/21/16)- severe global hypokinesis of LV w/EF 15-20% and pulmonary edema/ cardiomegaly on CXR. -Repeat echo ordered, Cardiology aware -lisinopril added for discharge and b sobeida 3. Hx of pre-diabetes, present on admission. Presumed stable. -HbA1c 5.9 CODE STATUS: FULL CODE FEN: Heart Healthy Diet, NPO after midnight. GI Prophylaxis: not indicated DVT Prophylaxis: Sub-q lovenox, 40mg daily PRN: Acetaminophen-fever/headache/mild/moderate pain Antiemetics, as needed Bowel regimen, as needed. Disposition: Patient admitted under inpatient status with expected length of stay > 2 midnights for severity of present symptoms, complexities of treatment plan and risk for adverse event. Exam Vital Signs (Last) Date Time Temp Pulse Resp B/P Pulse Ox O2 Delivery O2 Flow Rate FiO2 12/23/16 10:38 36.7 108 18 127/96 98 Room Air Exam Eyes; juhi eom intact, ENTM; well hydrated, no lesions CV; S1S2 present, no murmur or gallop, irregular at 90's Resp; clear Abdo soft and benign Skin; no rash or lesion noted Neuro; 2-12 intact no motor or sensory defects Test 12/21/16 18:05 12/22/16 05:50 12/23/16 01:30 Hold Lim Top Tube Received (Received) White Blood Count 8.9th/mm3 (3.8-10.1) Red Blood Count 6.00mil/mm3 (4.40-5.80) Hemoglobin 17.9g/dL (13.8-17.2) Hematocrit 52.3% (41.0-50.0) Mean Corpuscular Volume 87.2fL (81-100) Mean Corpuscular Hemoglobin 29.8pg (27.0-35.0) Mean Corpuscular Hemoglobin Concent 34.2% (32.0-37.0) Red Cell Distribution Width 14.3% (12.3-15.4) Platelet Count 216bil/L (150-400) Neutrophils (%) (Auto) 64.2% (40-74) Lymphocytes (%) (Auto) 24.7% (14-46) Monocytes (%) (Auto) 9.0% (4-12) Eosinophils (%) (Auto) 1.5% (0-5) Basophils (%) (Auto) 0.4% (0-3) Sodium Level 141mEq/L (134-144) Potassium Level 4.8mEq/L (3.5-5.2) Chloride Level 106mEq/L (97-108) Carbon Dioxide Level 20mmol/L (18-29) Blood Urea Nitrogen 17mg/dL (8-27) Creatinine 0.80mg/dL (0.76-1.27) Estimat Glomerular Filtration Rate 105mL/min (>59) Glucose Level 103mg/dL (60-99) Hemoglobin A1c 5.9% (4.8-5.6) Calcium Level 9.3mg/dL (8.5-10.1) Magnesium Level 2.2mg/dL (1.6-2.6) Total Bilirubin 1.1mg/dL (0.0-1.2) Aspartate Amino Transf (AST/SGOT) 33U/L (0-50) Alanine Aminotransferase (ALT/SGPT) 51U/L (0-44) Alkaline Phosphatase 76U/L (25-160) Total Protein 6.6g/dL (6.4-8.4) Albumin 4.0g/dL (3.4-5.0) Triglycerides Level 115mg/dL (0-149) Cholesterol Level 177mg/dL (100-199) LDL Cholesterol, Calculated 108.000mg/dL (0-99) VLDL Cholesterol 23.000mg/dL HDL Cholesterol 46mg/dL (>39) Cholesterol/HDL Ratio 3.85 (0.0-4.4) Thyroid Stimulating Hormone (TSH) 2.110uIU/mL (0.450-4.500) Digoxin Level < 0.3nG/mL (0.9-2.0) Troponin T 0.010ug/L (0.0-0.011) Discharge Medications Discharge Medications Amiodarone (Amiodarone) 400 Mg Tablet 400 MG PO BID Prescribed by: Jesus AYALA MD Apixaban (Eliquis) 5 Mg Tablet 5 MG PO BID Prescribed by: Jesus AYALA MD Lisinopril (Lisinopril) 5 Mg Tablet 5 MG PO DAILY Prescribed by: Jesus AYALA MD Metoprolol Succinate ER (Metoprolol Succinate ER) 100 Mg Tab.er.24h 100 MG PO DAILY Prescribed by: Jesus AYALA MD Metoprolol Succinate ER (Metoprolol Succinate ER) 50 Mg Tab.er.24h 50 MG PO DAILY Prescribed by: Jesus AYALA MD Followup Plan Follow-up plan Dr Perdomo's office is to call you in the next few day to set up your cardiology appointment, if you do not hear from them By Sunday please call for appointment Discharge Diet: Low fat, Low Sodium Discharge Activity: Limited until seen by PCP, Other (nothing to strenuous) Time spent 40 minutes time spent discharging patient today, current time is 2:59 pm copies to: Massiel De Leon MD; Sam March MD, D Geoffrey MD Dec 23, 2016 14:59
--- NOTE | 2016-12-23 15:21 | NUR ---
Discharge Went over discharge instructions with pt who verbally acknowledged understanding. Pharmacy consulted about new medications. Removed patent intact IV and tele. Pt left on foot to car. No s/s of distress at time of dc
--- NOTE | 2016-12-23 16:12 | NUR ---
Social Work: Discharge Data: Pt is a 61 y/o male admitted for A flutter with RVR. EMR reviewed. Pt is medically cleared to discharge and will discharge home via POV. No d/c planning needs anticipated at this time. Assessment: Pt who is independent at baseline. Plan: Pt to d/c home via POV. No d/c planning needs anticipated at this time. CAROLINA Marie
[2016-12-23] MEDS ORDERED: MeTOProlol XL 50 mg ER24 Tablet PO SCH (16:30)
== END 2016-12-23 14:46 | disposition home or self-care (01) | DRG 308 ==
LOC: SED 17:43 → MPC 20:03
PROVIDERS: ADMIT Family Medicine; ATTEND Family Medicine
PROC: B24BYZZ Ultrasonography of Heart with Aorta using Other Contrast (ICD-10-PCS; principal; 2016-12-22)
DX: I48.1 Persistent atrial fibrillation (principal); I50.21 Acute systolic (congestive) heart failure; R73.03 Prediabetes; I42.9 Cardiomyopathy, unspecified; E78.5 Hyperlipidemia, unspecified

== ENCOUNTER 2016-12-27 23:36 | Emergency (ER) | payer OTHER ==
[~2016-12-27] VITALS: Ht 185.4 cm; Wt 103.6 kg
[~2016-12-27 23:36] MED LIST: AMIO400T4 PO; APIX5TAB PO; LISI-571 PO; METO-272 PO; METO-274 PO
[2016-12-27 23:42] VITALS: BP 140/104; PULSE 79; RESP 16; O2SAT 97
== END 2016-12-28 00:26 | disposition left against medical advice (07) ==
LOC: SED 23:36
DX: T46.2X5A Adverse effect of other antidysrhythmic drugs, initial encounter (principal); Z53.21 Procedure and treatment not carried out due to patient leaving prior to being seen by health care provider

== ENCOUNTER 2017-03-03 09:53 | Emergency (ER) | payer OTHER ==
[~2017-03-03] VITALS: Ht 185.4 cm; Wt 104.5 kg
[2017-03-03 09:58] VITALS: BP 158/75; PULSE 58; RESP 16; O2SAT 99
--- NOTE | 2017-03-03 10:07 | ED.REPORT ---
HPI-Chest Pain 40 and Over Date of Service Mar 03, 2017 ED Provider: Frank Terry Patient is a 62 year old male with a hx of afib and HTN on Warfarin who presents to the ED complaining of dull, intermittent L sided chest pain that lasts for seconds at a time without radiation onset this morning. He denies SOB , extremity pain, jaw pain, nausea, vomiting, or any other symptoms. His pain is not exacerbated by exertion or palpation. He has a hx of heart disease on both sides of his family. Nursing Notes Stated Complaint: CHEST PAIN Chief Complaint: Chest Pain Nursing Notes Reviewed: Yes Allergies: Coded Allergies: No Known Allergies (Unverified , 03/03/17) Scheduled Amiodarone (Amiodarone) 400 Mg Tablet 400 MG PO BID Apixaban (Eliquis) 5 Mg Tablet 5 MG PO BID Lisinopril (Lisinopril) 5 Mg Tablet 5 MG PO DAILY Metoprolol Succinate ER (Metoprolol Succinate ER) 100 Mg Tab.er.24h 100 MG PO DAILY Metoprolol Succinate ER (Metoprolol Succinate ER) 50 Mg Tab.er.24h 50 MG PO DAILY General Time Seen by MD: 10:07 Chief Complaint Chest pain Hx Obtained From: Patient Arrived By: Walk-in Sudden in Onset?: Yes Onset Occurred: 1 - 4 hours ago Symptom Duration: Since onset Risk Factors )( CAD Risk Stratification HypertensionNo Diabetes mellitus Risk factors reviewed )( TAD Risk Stratification HypertensionNo Risk factors reviewed )( PE Risk Stratification No , No , No Previous DVT, No Previous PE Risk factors reviewed Past Medical History Past Medical History Reports: Hypertension Reports: Atrial fibrillation (with RVR ) Past Surgical History Vasectomy Hernia repair Smoking History Former Smoker Social History Alcohol Use: "Social" Drug Use: THC 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 Physical Exam Initial Vital Signs Vital Signs (First) Date Time Temp Pulse Resp B/P Pulse Ox O2 Delivery O2 Flow Rate FiO2 03/03/17 09:58 36.6 58 16 158/75 99 Room Air Initial VS: Reviewed Head / Eyes: Atraumatic, Normocephalic Neck: Full range of motion Skin: Warm, Dry Neurologic: Alert, Oriented, Nonfocal Psychiatric: Mood/affect normal, Behavior normal, Normal thought content General/Constitutional: Awake, Alert, Well developed Respiratory / Chest: Breath sounds NL, Breath sounds = bilat, No respiratory distress Cardiovascular: Regular rhythm, Heart sounds NL Heart Rate / Rhythm: Positive: Bradycardia Abdomen: Atraumatic, Soft, Non-tender Interpretation & Diagnostics Lab Results Interpretation Result Diagram: 03/03/17 1045 03/03/17 1045 Test 03/03/17 10:45 White Blood Count 9.5th/mm3 (3.8-10.1) Red Blood Count 6.00mil/mm3 (4.40-5.80) Hemoglobin 17.8g/dL (13.8-17.2) Hematocrit 50.6% (41.0-50.0) Mean Corpuscular Volume 84.3fL (81-100) Mean Corpuscular Hemoglobin 29.7pg (27.0-35.0) Mean Corpuscular Hemoglobin Concent 35.2% (32.0-37.0) Red Cell Distribution Width 13.6% (12.3-15.4) Platelet Count 231bil/L (150-400) Neutrophils (%) (Auto) 70.0% (40-74) Lymphocytes (%) (Auto) 18.4% (14-46) Monocytes (%) (Auto) 8.8% (4-12) Eosinophils (%) (Auto) 2.2% (0-5) Basophils (%) (Auto) 0.3% (0-3) Prothrombin Time 33.0sec (8.1-12.5) Prothromb Time International Ratio 3.02ratio Sodium Level 140mEq/L (134-144) Potassium Level 4.4mEq/L (3.5-5.2) Chloride Level 104mEq/L (97-108) Carbon Dioxide Level 24mmol/L (18-29) Blood Urea Nitrogen 10mg/dL (8-27) Creatinine 0.81mg/dL (0.76-1.27) Estimat Glomerular Filtration Rate 103mL/min (>59) Glucose Level 92mg/dL (60-99) Calcium Level 9.0mg/dL (8.5-10.1) Magnesium Level 2.1mg/dL (1.6-2.6) Total Bilirubin 0.5mg/dL (0.0-1.2) Aspartate Amino Transf (AST/SGOT) 35U/L (0-50) Alanine Aminotransferase (ALT/SGPT) 56U/L (0-44) Alkaline Phosphatase 76U/L (25-160) Troponin T 0.010ug/L (0.0-0.011) Total Protein 7.4g/dL (6.4-8.4) Albumin 3.9g/dL (3.4-5.0) ECG Interpretation ECG Interpretation: Sinus bradycardia no actue ST changes Rate 52 prior EKG shows flutter which is now resolved L axis deviation Time: 10:18 Interpreted by: ED physician Rhythm Strip Interpretation : Rhythm Strip Interpretation: Pt had an episode of chest pain while being evaluated. His symptoms were not correlated with a change in rhythm. Time: 10:40 Rhythm Strip Interpretation: Interpreted by me, Sinus bradycardia X-Ray Chest Interpretation Chest Xray Interpretation: IMPRESSION: Acute disease is not seen in the portable upright chest. Dictated by: Gato Rivers M.D. on 03/03/2017 at 10:28 Approved by: Gato Rivers M.D. on 03/03/2017 at 10:29 View: Portable, 1 view Interpretation / Wet Read by: Interpret - Radiologist Re-Eval/Medical Decision Med Decision/Clinical Course Symptoms are atypical for acute coronary syndrome, aortic aneurysm or dissection, or pulmonary embolism. Pain is minor and transient without other high-risk features. Patient is appropriately anticoagulated. Discussed with the patient he feels comfortable with discharge at symptoms have continued to improve. Return and follow-up precautions given Time of Eval: 11:36 Patient Status: Condition improved Re-Evaluation/Progress Note: Rechecked pt. Discussed labs, imaging, and plan for discharge. Patient understands and agrees with plan. All questions addressed at this time. Counseled Regarding: Diagnosis, Lab results, Need for follow-up, When/why to return to ED Discharge & Departure Primary Impression: Chest pain Chest pain type: unspecified Qualified Code: R07.9 - Chest pain, unspecified Disposition: Home Discharge Condition All VS Reviewed: Yes Condition: Stable Patient Instructions: Angina (ED) Additional Instructions: Your workup in the ER is reassuring. It does not appear that you are having a heart attack. Call your regular doctor Sunday morning for close follow-up appointment. Return to the ER as needed for persistent chest pain, severe trouble breathing, or any other concerns. Referrals: Massiel De Leon MD (PCP) Scribe Attestation Portions of this note were transcribed by Dinesh Maxwell. I, Dr. Terry personally performed the history, physical exam and medical decision-making; I reviewed and confirmed the accuracy of the information in the transcribed note. Signed by: Dinesh Maxwell 03/03/17, 1142 copies to: Massiel De Leon MD, Timothy S DO Mar 03, 2017 10:07 DINESH MAXWELL Mar 03, 2017 10:16
--- NOTE | 2017-03-03 10:30 | DRSVH ---
PROCEDURE: X-RAY CHEST ONE VIEW, PORTABLE ([id number]) INDICATIONS: CHEST PAIN TECHNIQUE: One view of the chest was acquired. COMPARISON: [facility], CR, XR CHEST 1VW (PORTABLE), 12/21/2016, 18:07. FINDINGS: Surgical changes and devices: Non athletic monitor leads are seen over the chest.gs and pleura: No p leural effusions or pneumothorax. Lungs are clear. Mediastinum: Mediastinal contours appear normal. Heart size is normal. Bones and chest wall: No suspicious bony lesions. Overlying soft tissues appear unremarkable. IMPRESSION: Acute disease is not seen in the portable upright chest. Dictated by: Gato Rivers M.D. on 03/03/2017 at 10:28 Approved by: Gato Rivers M.D. on 03/03/2017 at 10:29
[2017-03-03 10:57] VITALS: BP 162/79; PULSE 53; RESP 20; O2SAT 96
[2017-03-03 10:58] LABS: BASOPHILS % (AUTO) 0.3 % (0-3); EOSINOPHILS % (AUTO) 2.2 % (0-5); MONOCYTES % (AUTO) 8.8 % (4-12); Mean Corpuscular Hemoglobin 29.7 pg (27.0-35.0); Mean Corpuscular Volume 84.3 fL (81-100); Platelet Count 231 bil/L (150-400)
[2017-03-03 11:15] LABS: INR 3.02 ratio
[2017-03-03 11:22] LABS: TROPONIN T 0.01 ug/L (0.0-0.011)
[2017-03-03 11:33] LABS: Magnesium 2.1 mg/dL (1.6-2.6)
[2017-03-03 11:58] VITALS: BP 142/81; PULSE 52; RESP 19; O2SAT 97
== END 2017-03-03 11:50 | disposition home or self-care (01) ==
LOC: SED 09:53
DX: R07.9 Chest pain, unspecified (principal); I11.9 Hypertensive heart disease without heart failure; I48.91 Unspecified atrial fibrillation; Z87.891 Personal history of nicotine dependence